=== PATIENT | female | born 1970 | race Caucasian/White ===

== ENCOUNTER 2016-07-19 13:57 | Emergency (ER) | payer OTHER ==
[~2016-07-19] VITALS: Wt 63.5 kg
[~2016-07-19 13:57] MED LIST: CEPH-443 PO; HYDR-3498 PO; IBUP-1542 PO; OMEP20CA9 PO; OMEP40CA6 PO; TRAM50TA2 PO
[2016-07-19 14:24] LABS: URINE BLOOD (Dip) POC 1+ (NEGATIVE)
[2016-07-19 14:31] LABS: ADD SCAN DIFF NO
[2016-07-19 14:33] LABS: BASOPHILS % 0.4 % (0.0-2.0); EOSINOPHILS # 0.1 10^3/ul (0.0-0.5); EOSINOPHILS % 0.6 % (0.0-7.0); HEMATOCRIT 46.1 % (37.0-47.0); HEMOGLOBIN 14.7 g/dl (12.0-16.0); LYMPHOCYTES # 1.7 10^3/ul (0.8-2.9); LYMPHOCYTES % 20.2 % (15.0-51.0); MEAN CORPUSCULAR HEMOGLOBIN 29.8 pg (29.0-33.0); MEAN CORPUSCULAR HGB CONC 31.9 g/dl (32.0-37.0); MEAN CORPUSCULAR VOLUME 93.3 fl (82.0-101.0); MEAN PLATELET VOLUME 8.7 fl (7.4-10.4); MONOCYTE # 0.5 10^3/ul (0.3-0.9); NEUTROPHIL # 6.1 10^3/ul (1.6-7.5); NEUTROPHILS % 72.6 % (39.0-77.0); PLATELET COUNT 292 10^3/UL (140-415); RED BLOOD COUNT 4.94 10^6/ul (4.20-5.40); WHITE BLOOD COUNT 8.4 10^3/ul (4.8-10.8)
--- NOTE | 2016-07-19 14:37 | ERD ---
ER Documentation Chief Complaint Date/Time DATE: 07/19/16 TIME: 14:35 Chief Complaint RIGHT RIB PAIN HPI This a 46-year-old female who presents the emergency department today complaining of right-sided abdominal pain. Patient states it is been there for the last couple of days. States she has not taken any medication for the pain. Denies any nausea vomiting, fevers or chills. States that the pain comes and goes. ROS All systems reviewed and are negative except as per history of present illness. Medications Home Meds Active Scripts Acetaminophen* (Tylophen*) 500 Mg Capsule, 1 CAP PO Q6H Y for PAIN AND OR ELEVATED TEMP, #30 CAP Prov:LUZ ELENA HALL-C 07/19/16 Naproxen* (Naprosyn*) 500 Mg Tablet, 500 MG PO BID Y for PAIN AND/OR INFLAMMATION, #30 TAB Prov:LUZ ELENA HALLC 07/19/16 Hydrocodone/Acetaminophen (Leakey 5-325 Tablet) 1 Each Tablet, 1 TAB PO Q6H Y for PAIN, #10 TAB Prov:LUZ ELENA HALLC 07/19/16 Omeprazole* (Prilosec*) 20 Mg Capsule., 20 MG PO DAILY for 14 Days, CAP Prov:ROCIO ARGUELLO CLINICAL DERMATOLOGIST 05/30/15 Tramadol HCl (Tramadol HCl) 50 Mg Tablet, 50 MG PO Q4 Y for PAIN, #18 TAB Prov:DARCI JACKSON MD 05/12/15 Ibuprofen* (Motrin*) 600 Mg Tab, 600 MG PO Q6, #20 TAB Prov:DARCI JACKSON MD 05/12/15 Cephalexin* (Keflex*) 500 Mg Capsule, 500 MG PO QID for 10 Days, CAP Prov:DARCI JACKSON MD 05/12/15 Hydrocodone Bit-Acetaminophen* (Leakey*) 5-325 Mg Tab, 1 TAB PO Q6 Y for PAIN, # 20 TAB Prov:JOSHUA WISEMAN NP 04/19/15 Omeprazole* (Omeprazole*) 40 Mg Capsule., 40 MG PO DAILY, #60 CAP Prov:SHEEBA FIELDS DO 01/21/15 Ibuprofen* (Motrin*) 600 Mg Tab, 600 MG PO Q6H Y for PAIN, #30 TAB Prov:SHEEBA FIELDS DO 01/21/15 Allergies Allergies: Coded Allergies: No Known Allergy (Unverified , 04/18/15) PMhx/Soc History of Surgery: No Anesthesia Reaction: No Hx Neurological Disorder: No Hx Respiratory Disorders: No Hx Cardiac Disorders: No Hx Psychiatric Problems: No Hx Miscellaneous Medical Probl: No Hx Alcohol Use: No Hx Substance Use: No Hx Tobacco Use: No Smoking Status: Never smoker Physical Exam Vitals Vital Signs Date Time Temp Pulse Resp B/P Pulse Ox O2 Delivery O2 Flow Rate FiO2 07/19/16 14:00 97.8 74 18 121/63 99 Physical Exam Const: No acute distress Head: Atraumatic Eyes: Normal Conjunctiva ENT: Normal External Ears, Nose and Mouth. Neck: Full range of motion..~ No meningismus. Resp: Clear to auscultation bilaterally Cardio: Regular rate and rhythm, no murmurs Abd: Soft, epigastric and right upper quadrant tenderness non distended. Normal bowel sounds. No right lower quadrant pain. No tenderness McBurney's. No left lower quadrant pain. Skin: No petechiae or rashes Back: No midline or flank tenderness Ext: No cyanosis, or edema Neur: Awake and alert Psych: Normal Mood and Affect Result Diagram: 07/19/16 1425 07/19/16 1425 Results 24 hrs Laboratory Tests Test 07/19/16 14:24 07/19/16 14:25 Bedside Urine pH (LAB) 5.5 Bedside Urine Protein (LAB) Negative Bedside Urine Glucose (UA) Negative Bedside Urine Ketones (LAB) Negative Bedside Urine Blood 1+ Bedside Urine Nitrite (LAB) Negative Bedside Urine Leukocyte Esterase (L Negative White Blood Count 8.410^3/ul Red Blood Count 4.9410^6/ul Hemoglobin 14.7g/dl Hematocrit 46.1% Mean Corpuscular Volume 93.3fl Mean Corpuscular Hemoglobin 29.8pg Mean Corpuscular Hemoglobin Concent 31.9g/dl Red Cell Distribution Width 13.0% Platelet Count 69220^3/UL Mean Platelet Volume 8.7fl Neutrophils % 72.6% Lymphocytes % 20.2% Monocytes % 6.0% Eosinophils % 0.6% Basophils % 0.4% Nucleated Red Blood Cells % 0.0/100WBC Neutrophils # 6.110^3/ul Lymphocytes # 1.710^3/ul Monocytes # 0.510^3/ul Eosinophils # 0.110^3/ul Basophils # 0.010^3/ul Nucleated Red Blood Cells # 0.010^3/ul Sodium Level 137mmol/L Potassium Level 3.8mmol/L Chloride Level 104mmol/L Carbon Dioxide Level 26mmol/L Anion Gap 11 Blood Urea Nitrogen 10mg/dl Creatinine 0.58mg/dl Glucose Level 90mg/dl Calcium Level 8.8mg/dl Total Bilirubin 0.3mg/dl Direct Bilirubin 0.00mg/dl Indirect Bilirubin 0.3mg/dl Aspartate Amino Transf (AST/SGOT) 28IU/L Alanine Aminotransferase (ALT/SGPT) 47IU/L Alkaline Phosphatase 89IU/L Total Protein 7.4g/dl Albumin 4.1g/dl Globulin 3.30g/dl Albumin/Globulin Ratio 1.24 Lipase 70U/L DIAGNOSTIC IMAGING REPORT Patient: AHMET MILLS : 1970 Age: 46 Sex: F MR #: [id number] DOS: 07/19/16 0000 Ordering MD: LUZ ELENA HALL PA-C Location: [facility] Room/Bed: PROCEDURE: Abdominal Ultrasound (right upper quadrant). CLINICAL INDICATION: Abdominal pain TECHNIQUE: Multiple real-time longitudinal and transverse images of the right upper quadrant of the abdomen were acquired utilizing a curved array transducer. Images were reviewed on a high-resolution PACS workstation. COMPARISON: None FINDINGS: The liver is normal in size and echogenicity. No focal masses are identified. There is no evidence of intra or extrahepatic ductal dilatation. The common bile duct measures 4.1 mm in diameter. No gallstones or gallbladder wall thickening is seen. The visualized portions of the pancreas are unremarkable with obscuration of the tail of the pancreas. No free fluid is identified. There is no evidence of right hydronephrosis or renal calcification. The right kidney measures 10.0 cm in length. The visualized portions of the aorta and inferior vena cava are within normal limits. IMPRESSION: 1. Unremarkable right upper quadrant ultrasound. RPTAT: KK .Bam Mehta MD, MD Date Time Electronically viewed and signed by .Bam Mehta MD, MD on 2016 14:45 .B/ CC: LUZ ELENA HALL PA-C Procedures/MDM Is a 46-year-old female presents to the emergency department today complaining of right-sided abdominal pain for the past 2 days. On physical exam patient has epigastric and right upper quadrant tenderness. I did obtain laboratory work as well as imaging. Laboratory work shows no elevated white blood cell count. She is not anemic. Platelets are within normal limits. Electrolytes are within normal limits. Glucose within normal limits. Liver functions within normal limits. Lipase is within normal limits. UA is negative for infection. Patient does have 1+ blood. She indicated she was going to be starting her menstrual cycle tomorrow Urine test is negative. Right upper quadrant ultrasound is unremarkable. There is no evidence of intrahepatic or extrahepatic ductal dilatation. Common bile duct measures 4.1 mm in diameter. There is no gallstone or gallbladder wall thickening seen. I discussed the patient with Dr. Jackson and he has recommended a chest x-ray Chest x-ray read and interpreted by Dr. Jackson. Chest x-ray is negative. Low suspicion for PE, pleural effusion, abscess, pneumothorax. Patient is afebrile and otherwise well-appearing. Her oxygen saturation 99%. She is not tachycardic. Patient has abdominal pain of uncertain etiology. She has no lower abdominal pain and have low suspicion for acute surgical abdomen. Patient declined pain medication here in the emergency department. I will give patient a short course of Leakey for home as well as Naprosyn and Tylenol. At this time the patient is stable for discharge and outpatient management. Patient should follow up with their PCP in the next 1-2 days. They may return to the emergency department sooner for any persistent or worsening of symptoms. Patient understood and agreed with the plan. Departure Diagnosis: Primary Impression: Abdominal pain Abdominal location: right upper quadrant Qualified Code: R10.11 - Right upper quadrant abdominal pain Condition: Fair LUZ ELENA HALL PA-C Jul 19, 2016 14:37
--- NOTE | 2016-07-19 14:46 | RADRPT ---
PROCEDURE: Abdominal Ultrasound (right upper quadrant). CLINICAL INDICATION: Abdominal pain TECHNIQUE: Multiple real-time longitudinal and transverse images of the right upper quadrant of th e abdomen were acquired utilizing a curved array transducer. Images were reviewed on a high-resoluti on PACS workstation. COMPARISON: None FINDINGS: The liver is normal in size and echogenicity. No focal masses are identified. There is no evidenc e of intra or extrahepatic ductal dilatation. The common bile duct measures 4.1 mm in diameter. No gallstones or gallbladder wall thickening is seen. The visualized portions of the pancreas are unremarkable with obscuration of the tail of the pancrea s. No free fluid is identified. There is no evidence of right hydronephrosis or renal calcification. The right kidney measures 10.0 cm in length. The visualized portions of the aorta and inferior vena cava are within normal limits. IMPRESSION: 1. Unremarkable right upper quadrant ultrasound. RPTAT: KK .Bam Mehta MD, MD Date Time Electronically viewed and signed by .Bam Mehta MD, MD on 07/19/2016 14:45 .B/
[2016-07-19 14:54] LABS: ALBUMIN 4.1 g/dl (3.3-4.9); ALBUMIN/GLOBULIN RATIO 1.24; BILIRUBIN,INDIRECT 0.3 mg/dl (0-1.1); BILIRUBIN,TOTAL 0.3 mg/dl (0.2-1.3); CALCIUM 8.8 mg/dl (8.4-10.2); CREATININE 0.58 mg/dl (0.44-1.00); POTASSIUM 3.8 mmol/L (3.5-5.1); TOTAL PROTEIN 7.4 g/dl (6.1-8.1)
[2016-07-19] MEDS ORDERED: NAPR-260 PO (16:13)
[2016-07-19] MEDS ORDERED: HYDR-906 PO (16:13)
[2016-07-19] MEDS ORDERED: ACET500C5 PO (16:14)
--- NOTE | 2016-07-19 16:26 | RADRPT ---
PROCEDURE: Chest Radiograph. CLINICAL INDICATION: Abdominal pain. Chest pain. TECHNIQUE: Single frontal chest radiograph. COMPARISON: Chest radiograph 01/21/2015 FINDINGS: The cardiomediastinal silhouette is within normal limits. No infiltrate or effusion is seen. Th e bones are intact. IMPRESSION: 1. Unremarkable chest radiograph. RPTAT: KK .Bam Mehta MD, MD Date Time Electronically viewed and signed by .Bam Mehta MD, on 07/19/2016 16:26 .B/
[2016-07-19 16:30] VITALS: BP 117/74; PULSE 82; RESP 17; TEMP 97.7
== END 2016-07-19 16:31 | disposition home or self-care (01) ==
LOC: FTE 13:57
DX: R10.11 Right upper quadrant pain (principal)
CPT/HCPCS: 71010; 76705; 80053; 81003; 83690; 85025